=== PATIENT | female | born 1960 | race Caucasian/White ===

== ENCOUNTER → 2018-10-13 | Outpatient (REF) ==
--- NOTE | 2018-10-13 13:51 | RADIOLOGY IMAGING REPORT ---
FACILITY: [facility] - [place] PATIENT NAME: Paula Ledesma : 1960 MR: [id number] V: [id number] EXAM DATE: ORDERING PHYSICIAN: MANUEL WEAVER TECHNOLOGIST: Location: [facility] [place] Patient: Paula Ledesma : 1960 Visit/Account:[id number] Date of Sevice: 10/13/2018 EXAMINATION: MRI lumbar spine without IV contrast HISTORY: Low back pain, hip pain and numbness COMPARISON: None. TECHNIQUE: Multi-planar, multi-sequence lumbar spine MRI was performed without intravenous contrast administration. FINDINGS: Alignment: Normal. Vertebral marrow signal: Negative. Distal thoracic cord: Negative. Conus: negative, terminates at L1-2 Cauda equina: Negative. Paravertebral soft tissues: Negative. Visualized abdominal and pelvic structures: Negative. Disc Spaces: Lower thoracic spine: Normal. L1-2: Normal. L2-3: Normal. L3-4: Normal. L4-5: Normal. L5-S1: Disc degeneration with loss of disc height and mild broad disc bulge resulting in mild bilater al foraminal narrowing. IMPRESSION: Degenerative changes at L5-S1. Report Dictated By: DAMIAN CHUNG at 10/13/2018 1:38 PM Report E-Signed By: DAMIAN CHUNG at 10/13/2018 1:42 PM WSN:[id number]
== END ==
LOC: MRI 01:02
PROVIDERS: ATTEND Family Medicine
DX: M51.37 Other intervertebral disc degeneration, lumbosacral region (principal)
CPT/HCPCS: 72148